=== PATIENT | female | born 1990 | race Caucasian/White ===

== ENCOUNTER 2016-12-14 08:16 | Emergency (ER) | payer BC ==
[~2016-12-14] VITALS: Ht 165.1 cm; Wt 105.7 kg
[~2016-12-14 08:16] MED LIST: ARIP5TAB10 PO; CETI10CA19 PO; ESCI20TA PO; GABA-305 PO; GABA-338 PO; METO50TA5 PO; MONT5TAB14 PO; PNV91TAB3 PO; RANI150T12 PO; ZOLP5TAB2 PO
[2016-12-14 08:20] VITALS: Ht 165.1 cm; Wt 105.7 kg
--- NOTE | 2016-12-14 08:41 | NUR ---
ORTHOSTATIC VS DONE WITH SOME DIZZINESS REPORTED.
--- NOTE | 2016-12-14 08:42 | ERPDOC ---
Departure Disposition Decision Date: December 14, 2016 Disposition Decision Time: 10:00 Disposition: 01 DISCHARGED HOME, SELF-CARE Impression Impression Impression: Primary Impression: Gastroenteritis Additional Impression: Volume depletion Severity: Moderate Condition: Stable Seen By: Physician only Referrals: JUAN DIEGO BRADEN (Family) Patient Instructions: Gastroenteritis (ED) Problems/Meds/Labs Reviewed?: Yes Medications reviewed and manag: Yes Departure Forms: Return to Work/School Permit Return to Work/School Date: December 19, 2016 Follow up care ordered?: Yes Mental Status: Alert, Oriented Scripts Ondansetron (Zofran Odt) 4 Mg Tab.rapdis 4 MG PO Q6HR Y for NAUSEA &/OR VOMITING, #12 TAB Oral disintegrating tablet Prov: SCOUT VAZQUEZ MD 12/14/16 HPI - General Medical General Chief Complaint: Dizzy Stated Complaint: PASSED OUT, LIGHT HEADED, DIZZY ,LOW PULSE Time Seen by Provider: 08:41 Source: patient Exam Limitations: no limitations HPI - General Medical Initial Comments Patient is a 26-year-old female presents the ER for evaluation of dizziness question passing out. Patient developed nausea and vomiting yesterday has had multiple episodes. Patient got in her car after a break at work and felt very dizzy believe she passed out for 2 seconds[address] Patient [address] herself to the ER for evaluation. Patient denies any abdominal pain, ate normally last night no fevers no chills Occurred At: home Onset: Rapid Duration: 12-24 hrs Allergies: Coded Allergies: codeine (Verified Allergy, Mild, HIVES, 01/21/16) iodine (Verified Allergy, Mild, FACIAL SWELLING, 01/21/16) latex (Verified Allergy, Unknown, HIVES, 12/14/16) Past History Past Medical History Metabolic: DENIES: diabetes, hypercholesterolemia, hypertension, hypothyroidism Cardiac: DENIES: A-fib, CHF Respiratory: DENIES: COPD, asthma Neurological: migraines Surgical History General: gallbladder, tonsils Social History Substance Use Type: does not use Alcohol Intake: none Review of Systems Constitutional Constitutional: appetite decrease, dizziness, weakness, DENIES: chills, fever ENMT Sinuses: DENIES: congestion Cardiovascular Cardiac: DENIES: chest pain, dyspnea on exertion Pulmonary Respiratory: DENIES: cough, dyspnea, sputum, tachypnea GI Upper Abdomen: nausea, vomiting, DENIES: pain Lower Abdomen: DENIES: constipation, diarrhea, pain General: DENIES: frequency, urgency Musculoskeletal General: DENIES: cramps, pain, weakness Integumentary Skin: DENIES: color change, itching, rash Endocrine Endocrine: DENIES: heat/cold intolerance Hematologic/Lymphatic Hematologic/Lymphatic: DENIES: anemia Physical Exam General General Nourishment: well nourished, well developed General Body Habitus: well groomed Vitals and Pain First Documented Vital Signs Date Time Temp Pulse Resp B/P Pulse Ox O2 Delivery O2 Flow Rate FiO2 12/14/16 08:20 98.3 76 16 110/68 97 Room Air Weight: Kilograms: Height (feet): 5 Height (inches): 5.00 Triage Pain Scale: RN VS reviewed by Provider: Yes Eyes (brief) Eyes Brief: found: EOMI, PERRL ENMT (brief) ENMT Brief: FOUND: TM clear, TM good light reflex, ear canals clear Neck (brief) Neck: NOT FOUND: adenopathy, spasm, tenderness Respiratory (brief) Respiratory: FOUND: clear all barron, equal bilaterally, NOT FOUND: rales, wheezes Cardiovascular (brief) Cardiac: FOUND: regular rate, regular rhythm Capillary Refill: <2 sec Abdomen Inspection: NOT FOUND: distention, fasciculations Palpation: FOUND: soft, NOT FOUND: Obturator sign, Psoas sign, hepatomegaly, involuntary guarding, rebound, splenomegaly, tender, voluntary guarding Auscultation: FOUND: normoactive Musculoskeletal (brief) Musculoskeletal Brief: NOT FOUND: spasm, tenderness Integumentary (brief) Integumentary Brief: FOUND: dry, pink, warm, NOT FOUND: rash Neurologic (brief) Neurological Brief: FOUND: CN w/o gross def to obs, motor-no gross deficits, sensory-no gross deficits Psychiatric (brief) Psychiatric Brief: FOUND: alert, oriented Differential Diagnoses Considering: Hypo/Hyperglycemia, Hypo/Hyperkalemia, Hypo/Hypernatremia, UTI, Other (gastroenteritis, new Diagnosis) Progress Results/Orders Orders Procedure Category Date Status Time EKG EKG 12/14/16 Taken 08:29 Orthostatic Bp/Pulse EDM 12/14/16 Transmitted 08:29 Iv Lock (Ed Only) EDM 12/14/16 Transmitted 08:45 Cbc W/Auto LAB 12/14/16 Complete Diff-Reflex Manual 08:45 Bmp - Basic Metabolic LAB 12/14/16 Complete Panel 08:45 Ua, Dip Wreflex LAB 12/14/16 Complete Microsc & Decorating Machine Operator 08:45 Normal Saline (Normal PHA 12/14/16 Complete Saline Iv) 08:45 LAB 12/14/16 Complete Qualitative, Urine 08:45 Ondansetron Inj PHA 12/14/16 Complete (Zofran) 09:15 Lab Results Laboratory Tests Test 12/14/16 09:03 12/14/16 09:43 White Blood Count 8.8T/MM3 Red Blood Count 4.48M/MM3 Hemoglobin 13.8GM/DL Hematocrit 41.5% Mean Corpuscular Volume 92.6UM3 Mean Corpuscular Hemoglobin 30.8UUG Mean Corpuscular Hemoglobin Concent 33.3GM/DL RDW Standard Deviation 42.2FL Platelet Count 330T/MM3 Mean Platelet Volume 10.1UM3 Immature Granulocyte % (Auto) 0.2% Neutrophils (%) (Auto) 72.0% Lymphocytes (%) (Auto) 18.2% Monocytes (%) (Auto) 7.2% Eosinophils (%) (Auto) 1.9% Basophils (%) (Auto) 0.5% Absolute Immature Granulocyte (auto 0.02T/MM3 Absolute Neutrophils (auto) 6.3T/MM3 Absolute Lymphocytes (auto) 1.6T/MM3 Absolute Monocytes (auto) 0.6T/MM3 Absolute Eosinophils (auto) 0.2T/MM3 Absolute Basophils (auto) 0.0T/MM3 Turbidity < 20 Sodium Level 141MEQ/L Potassium Level 4.9MEQ/L Chloride Level 106MEQ/L Carbon Dioxide Level 22MEQ/L Anion Gap 13MEQ/L Blood Urea Nitrogen 14.0MG/DL Creatinine 0.9MG/DL Glomerular Filtration Rate Calc 76 BUN/Creatinine Ratio 16RATIO Glucose Level 97MG/DL Calculated Osmolality 272MOSM/KG Calcium Level 9.3MG/DL Icterus Index < 2 Chemistry Specimen Hemolysis < 15 Urine Collection Type Voided-not cc-midstr Urine Color Yellow Urine Turbidity Sl cloudy Urine pH 5.5 Urine Specific [place] 1.025 Urine Protein Trace Urine Glucose (UA) Negative Urine Ketones Negative Urine Blood Trace-lysed Urine Nitrite Negative Urine Bilirubin 1+ Urine Urobilinogen 0.2EU/DL Urine Leukocyte Esterase Trace Urinalysis Comment Microscopic not ind. Urine Test Negative Medications Current ED Medications Sodium Chloride (Normal Saline IV) 1,000 ml @ 999 mls/hr Q1H1M ONCE IV Last administered on 12/14/16 09:12; Start 12/14/16 at 08:45; Stop 12/14/16 at 09:45; Status DC Ondansetron HCl (Zofran) 4 mg O ONCE IV Last administered on 12/14/16 09:12; Start 12/14/16 at 09:15; Stop 12/14/16 at 09:16; Status DC SCOUT VAZQUEZ MD December 14, 2016 08:42
--- NOTE | 2016-12-14 08:43 | NUR ---
DR VAZQUEZ IN
[2016-12-14] MEDS ORDERED: NORMAL SALINE 1,000 ML IV ONE (08:45)
[2016-12-14] MEDS ORDERED: ONDANSETRON 4mg/2ml INJECTION IV ONE (09:15)
[2016-12-14 09:18] LABS: BASOPHILS % (AUTO) 0.5 % (0-2); EOSINOPHILS # (AUTO) 0.2 T/MM3 (0-0.5); EOSINOPHILS % (AUTO) 1.9 % (0-4); HCT - HEMATOCRIT 41.5 % (36-46); HGB - HEMOGLOBIN 13.8 GM/DL (12-16); IMMATURE GRANULOCYTE # (AUTO) 0.02 T/MM3 (0.00-0.03); IMMATURE GRANULOCYTE % (AUTO) 0.2 % (0.0-0.5); LYMPHOCYTES # (AUTO) 1.6 T/MM3 (1-4.8); LYMPHOCYTES % (AUTO) 18.2 % (23-45); MEAN CORPUSCULAR HGB 30.8 UUG (26-34); MEAN CORPUSCULAR HGB CONC(MCHC 33.3 GM/DL (31-37); MEAN CORPUSCULAR VOLUME 92.6 UM3 (80-100); MEAN PLATELET VOLUME 10.1 UM3 (9.4-12.4); MONOCYTES # (AUTO) 0.6 T/MM3 (0-0.8); MONOCYTES % (AUTO) 7.2 % (0-9.0); NEUTROPHILS #(AUTO)-ABSOLUTE 6.3 T/MM3 (1.8-7.7); RED BLOOD COUNT 4.48 M/MM3 (4.00-5.20); WBC - WHITE BLOOD COUNT 8.8 T/MM3 (4.5-11.0)
--- NOTE | 2016-12-14 09:20 | NUR ---
REPORT TO GISELL ZAVALETA
[2016-12-14 09:27] LABS: ANION GAP 13 MEQ/L (5-15); BUN/CREATININE RATIO 16 RATIO (6-26); CALCIUM 9.3 MG/DL (8.4-10.2); CHLORIDE 106 MEQ/L (98-107); CO2 - CARBON DIOXIDE 22 MEQ/L (22-30); CREATININE 0.9 MG/DL (0.7-1.2); GLOMERULAR FILTRATION RATE 76; GLUCOSE 97 MG/DL (65-110); POTASSIUM 4.9 MEQ/L (3.6-5); SODIUM 141 MEQ/L (134-144)
[2016-12-14] MEDS ORDERED: SULF1TAB42 PO (09:30)
[2016-12-14] MEDS ORDERED: LYSI500T3 PO (09:30)
[2016-12-14] MEDS ORDERED: PHEN-412 PO (09:30)
[2016-12-14] MEDS ORDERED: LANS15CA5 PO (09:30)
[2016-12-14] MEDS ORDERED: ACYC200C PO (09:30)
[2016-12-14] MEDS ORDERED: GUAI120015 PO (09:30)
[2016-12-14] MEDS ORDERED: D-ME-96 (09:30)
[2016-12-14] MEDS ORDERED: NORG1TAB12 (09:32)
--- NOTE | 2016-12-14 09:45 | NUR ---
ACTIVITY AMB TO BR. VOIDED QS CLEAR DANIELE URINE. NO DIZZINESS OR LTHEADEDNESS
[2016-12-14 09:53] LABS: BLOOD, URINE TRACE-LYSED (NEGATIVE); COLOR,URINE YELLOW (YELLOW); LEUKOCYTE ESTERASE ,URINE TRACE (NEGATIVE); NITRITE,URINE NEGATIVE (NEGATIVE); UROBILINOGEN,URINE 0.2 EU/DL (NORMAL)
[2016-12-14] MEDS ORDERED: ONDA4TAB7 PO (10:03)
[2016-12-14 10:13] VITALS: BP 103/50; PULSE 69; RESP 16; TEMP 98.1; O2SAT 98
--- NOTE | 2016-12-14 10:13 | NUR ---
DISMISSAL FEELS BETTER.
== END 2016-12-14 10:13 | disposition home or self-care (01) ==
LOC: ED 08:16
DX: K52.9 Noninfective gastroenteritis and colitis, unspecified (principal); E86.9 Volume depletion, unspecified
CPT/HCPCS: 80048; 81003; 81025; 85025; 93005; 96361; 96374; 99284; J2405; J7030